=== PATIENT | female | born 1960 | race Caucasian/White ===

== ENCOUNTER → 2016-04-21 | Outpatient (CLI) | payer MEDICARE, MEDICAID ==
[~2016-04-21] MED LIST: ASPIRIN 81M81 MG/TA2 PO; BENADRYL25 M2 PO; COLACE 100100 MG/CAP PO; DESYREL DIVIDO150 M1 PO; DEXILANT30 MG PO; GAS RELIEF MAX166 M1 PO; HCTZ12.5TAB PO; IMODIUM 2MG CAPS2 MG PO; KLONOPIN 0.5MG0.5 MG PO; LASIX 20MG TABL20 MG PO; LAXATIVE FOR WOM5 MG PO; MOBIC15 MG PO; NEPHROCAP PO; NITROSTAT0.4 MG/TAB SL; NORCO 325 MG-51 TAB PO; NORCO 325 MG-7.1 TAB PO; NORVASC2.5 MG PO; PEPCID 20MG TAB20 MG PO; PLAVIX 75MG TAB75 MG PO; PRINIVIL10 MG PO; PROAMATINE10 MG PO; PROTONIX20 MG PO; RENO CAPS1 SGL PO; REVATIO20 MG PO; RISPERDAL 1M1 MG/TAB PO; ROXICODONE 55 MG/TAB PO; SUDAFED 12 HOU120 MG PO; TAGAMET200 MG PO; THEO-24 30300 MG/CAP PO; TOPROL XL 25MG25 MG PO; XARELTO10 MG PO; ZOCOR 20MG20 MG PO; ZOLOFT 50MG50 MG PO; [UNRECOGNIZED DRUG - OTHER] PO
== END ==
LOC: COL.VAS 08:33
DX: I07.1 Rheumatic tricuspid insufficiency (principal); R94.39 Abnormal result of other cardiovascular function study; I25.2 Old myocardial infarction; G47.23 Circadian rhythm sleep disorder, irregular sleep wake type

== ENCOUNTER 2016-05-27 14:34 | Inpatient (IN) | payer MEDICARE, MEDICAID ==
[~2016-05-27] VITALS: Ht 154.9 cm; Wt 59.3 kg
[~2016-05-27 14:34] MED LIST changes: -ASPIRIN 81M81 MG/TA2 PO; -NITROSTAT0.4 MG/TAB SL; -NORVASC2.5 MG PO; -PROTONIX20 MG PO
[2016-07-30] MEDS ORDERED: NORCO 325 MG-51 TAB PO (13:00)
[2016-07-30] MEDS ORDERED: PROTONIX20 MG PO (13:00)
[2016-07-30] MEDS ORDERED: BENADRYL25 M2 PO (13:01)
[2016-07-30] MEDS ORDERED: NORVASC2.5 MG PO (13:02)
[2016-07-30] MEDS ORDERED: ASPIRIN 81M81 MG/TA2 PO (13:02)
[2016-08-02] VITALS (12 sets, daily range): BP systolic 70–126; BP diastolic 50–76; PULSE 51–85; TEMP 97.4–98
[2016-08-02] MEDS ORDERED: NITROSTAT0.4 MG/TAB SL (08:20)
[2016-08-03] VITALS (18 sets, daily range): BP systolic 65–110; BP diastolic 37–86; PULSE 47–74; TEMP 97.5–98.3
[2016-08-03 07:15] LABS: HEMATOCRIT 23.6 % (37.0-47.0); HEMOGLOBIN 7.4 g/dl (12.5-16.0)
[2016-08-03 07:42] LABS: CREATININE, serum 1.18 mg/dL (0.52-1.25); POTASSIUM 3.7 mmol/L (3.4-5.0)
[2016-08-03 12:50] LABS: BASO % 0.3 % (0.0-2.0); EOS # 0.1 (0.0-0.7); EOS % 0.9 % (0-4.0); GRAN % 79.2 % (42.2-75.2); LYMPH # 0.6 (1.2-3.4); MEAN CELL VOLUME 102 fl (80.0-100.0); MEAN CORPUSCULAR HGB CONC 31 g/dl (33.0-37.0); MEAN PLATELET VOLUME 10.7 fl (7.4-10.4); MONO # 0.6 (0.1-0.6); MONO % 9.3 % (1.7-9.3); PLATELET COUNT 115 K/mm3 (130-400); REDCELL DISTRIBUTION WIDTH-CV 16.1 % (11.5-14.5); WHITE BLOOD COUNT 6.3 K/mm3 (4.8-10.8)
[2016-08-03 12:51] LABS: HEMATOCRIT 25.5 % (37.0-47.0); HEMOGLOBIN 7.8 g/dl (12.5-16.0); MEAN CORPUSCULAR HEMOGLOBIN 31 pg (27.0-31.0)
[2016-08-04 04:28] VITALS: BP 89/55; PULSE 63; TEMP 97.8
[2016-08-04 07:13] VITALS: BP 78/47; PULSE 66; TEMP 98.1
[2016-08-04 08:05] LABS: HEMATOCRIT 30.1 % (37.0-47.0); HEMOGLOBIN 9.4 g/dl (12.5-16.0)
[2016-08-04 11:38] VITALS: BP 90/55; PULSE 64; TEMP 98.5
[2016-08-04 15:45] VITALS: BP 90/49; PULSE 60; TEMP 98.5
[2016-08-04 20:35] VITALS: BP 85/53; PULSE 59; TEMP 97.8
[2016-08-05 04:00] VITALS: BP 96/59; PULSE 54; TEMP 97.9
[2016-08-05 07:20] VITALS: BP 97/64; PULSE 56; TEMP 98.5
[2016-08-05 08:55] LABS: HEMOGLOBIN 9.7 g/dl (12.5-16.0)
[2016-08-05 11:22] VITALS: BP 87/45; PULSE 66
[2016-08-05 17:04] VITALS: BP 90/52; PULSE 69; TEMP 98.4
[2016-08-05 21:13] VITALS: BP 94/55; PULSE 56; TEMP 98.9
[2016-08-05 23:42] VITALS: BP 91/55; PULSE 55; TEMP 97.7
[2016-08-06 05:28] VITALS: BP 109/55; PULSE 68; TEMP 98.5
[2016-08-06 07:37] VITALS: BP 108/65; PULSE 50; TEMP 98.5
[2016-08-06 10:30] LABS: ARTERIAL BLD GAS O2 SATURATION 97.7 % (92-100); ARTERIAL BLD GAS TCO2 CT 24.2; ARTERIAL BLOOD GAS BASE EXCESS -0.5 (-2-2); ARTERIAL BLOOD GAS HCO3 23.2 meq/L (22-26); ARTERIAL BLOOD GAS PHT 7.44 C (7.35-7.45); ARTERIAL BLOOD GAS PO2 133.7 mmHg (80-100); ARTERIAL BLOOD GAS pH 7.44 (7.35-7.45); OXYHEMOGLOBIN 96.8 %
[2016-08-06 10:31] LABS: ALLEN TEST YES; ALLENS TEST RESULT PASS; ARTERIAL BLOOD GAS PO2T 133.7 (80-100); ATS? YES
[2016-08-06 12:10] VITALS: BP 92/53; PULSE 61; TEMP 98.1
[2016-08-06 16:33] VITALS: BP 92/53; PULSE 61; TEMP 98.1
== END 2016-08-06 17:00 | DRG 469 ==
LOC: JCC 08-02 06:20
PROVIDERS: Internal Medicine; Nurse Practitioner Family; Orthopaedic Surgery
PROC: 0SR90JA Replacement of Right Hip Joint with Synthetic Substitute, Uncemented, Open Approach (ICD-10-PCS; principal; 2016-08-02 10:15)
DX: M16.11 Unilateral primary osteoarthritis, right hip (principal); I50.33 Acute on chronic diastolic (congestive) heart failure; I13.0 Hypertensive heart and chronic kidney disease with heart failure and stage 1 through stage 4 chronic kidney disease, or unspecified chronic kidney disease; J81.1 Chronic pulmonary edema; I27.2 Other secondary pulmonary hypertension; N18.3 Chronic kidney disease, stage 3 (moderate); I25.10 Atherosclerotic heart disease of native coronary artery without angina pectoris; I73.1 Thromboangiitis obliterans [Buerger's disease]; M06.9 Rheumatoid arthritis, unspecified; F17.210 Nicotine dependence, cigarettes, uncomplicated; Z85.048 Personal history of other malignant neoplasm of rectum, rectosigmoid junction, and anus; D64.9 Anemia, unspecified; I95.81 Postprocedural hypotension
CPT/HCPCS: 99223; 99232-AI; 99233-AI; A4315; A9284; C1713; C1776; J0461; J0690; J1100; J1940; J2250; J2370; J2405; J2704; J3010; J7040; J7042; J7050; J7120; P9016

== ENCOUNTER → 2016-07-22 | Outpatient (CLI) | payer MEDICARE, MEDICAID ==
[~2016-07-22] MED LIST changes: +ASPIRIN 81M81 MG/TA2 PO; +NITROSTAT0.4 MG/TAB SL; +NORVASC2.5 MG PO; +PROTONIX20 MG PO
[2016-07-22 13:01] LABS: HIV 1/2 Antibodies Non-Reactive; HIV-1p24 Antigen Non-Reactive
== END ==
LOC: COL.LAB 11:35
PROVIDERS: Orthopaedic Surgery
DX: Z01.812 Encounter for preprocedural laboratory examination (principal); M25.851 Other specified joint disorders, right hip

== ENCOUNTER → 2016-07-27 | Outpatient (CLI) | payer MEDICARE, MEDICAID | LOC: COL.VAS 08:00 | DX: I08.1 Rheumatic disorders of both mitral and tricuspid valves (principal); I28.8 Other diseases of pulmonary vessels ==

== ENCOUNTER → 2016-08-13 | Outpatient (REF) ==
[2016-08-13 09:54] LABS: CALCIUM 9.3 mg/dL (8.4-10.2); CREATININE, serum 1.34 mg/dL (0.52-1.25); MAGNESIUM 1.9 mg/dL (1.6-2.3); POTASSIUM 4.5 mmol/L (3.4-5.0)
== END ==
LOC: ZLAB.STJ 09:23
DX: Z01.89 Encounter for other specified special examinations (principal)

== ENCOUNTER → 2017-02-22 | Outpatient (CLI) | payer MEDICARE | LOC: COL.VAS 11:57 | DX: I08.8 Other rheumatic multiple valve diseases (principal); I31.3 Pericardial effusion (noninflammatory) ==